=== PATIENT | female | born 1990 | race Two or more races ===

== ENCOUNTER 2025-04-20 12:44 | Observation (INO) | payer OTHER, MEDICAID, SELFPAY ==
[2025-04-20 12:54] VITALS: BP 125/76; PULSE 81
[2025-04-20 12:56] VITALS: BP 125/76; PULSE 81; RESP 18; RESP 98; TEMP 36.9; BMI 26.6
[2025-04-20 13:28] LABS: Collection Type, Urine Clean Catch
[2025-04-20 13:52] LABS: Bacteria,Urine 1+; Bilirubin,Urine Negative (Negative); Blood,Urine Negative (Negative); Clarity,Urine Turbid (Clear/Hazy); Color,Urine Lt-Yellow (Lt Yel-Yel); Glucose, Urine Negative (Negative); Ketones,Urine Negative (Negative); Leukocyte Esterase,Urine Positive (Negative); Nitrite,Urine Negative (Negative); PH,Urine 6.5 (5.0-7.0); Protein,Urine Negative (Neg - Trace); RBC,Urine 9 /hpf (0-3); Specific Gravity,Urine 1.004 (1.001-1.035); Squamous Epithelial Cell,Urine 10 /hpf (0-5); Urobilinogen,Urine Negative mg/dL (0.0-1.0); WBC,Urine 20 /hpf (0-5)
== END 2025-04-20 14:20 | disposition home or self-care (01) ==
PROVIDERS: Admitting Provider Obstetrics & Gynecology; Visit Provider Obstetrics & Gynecology
DX: O26.893 Other specified pregnancy related conditions, third trimester (principal); M54.50 Low back pain, unspecified; R10.30 Lower abdominal pain, unspecified; Z3A.30 30 weeks gestation of pregnancy
CPT/HCPCS: 59025; 59899; 81001

== ENCOUNTER 2025-06-07 21:30 | Observation (INO) | payer OTHER, MEDICAID, SELFPAY ==
[2025-06-07] VITALS (9 sets, daily range): BP systolic 122; BP diastolic 75; PULSE 77–100; RESP 18–98; TEMP 36.5; O2SAT 97–99; BMI 27.8
== END 2025-06-07 22:32 | disposition home or self-care (01) ==
PROVIDERS: Admitting Provider Obstetrics & Gynecology; Visit Provider Obstetrics & Gynecology
DX: O47.03 False labor before 37 completed weeks of gestation, third trimester (principal); Z3A.36 36 weeks gestation of pregnancy
CPT/HCPCS: 59025; 59899

== ENCOUNTER 2025-06-26 10:40 | Outpatient (CLI) | payer OTHER, MEDICAID, SELFPAY ==
[2025-06-26 10:40] VITALS: BP 134/82; PULSE 82; RESP 16; RESP 99; TEMP 36.6; BMI 28.3
[2025-06-26 10:47] VITALS: BP 134/82; PULSE 82
[2025-06-26 11:03] VITALS: BP 123/83; PULSE 93
[2025-06-26 11:17] VITALS: BP 122/75; PULSE 68
== END 2025-06-26 11:30 | disposition home or self-care (01) ==
LOC: S4S1 10:42 → S4SX 10:42
PROVIDERS: Referring Provider Specialist; Visit Provider Specialist
DX: O36.8130 Decreased fetal movements, third trimester, not applicable or unspecified (principal); Z3A.39 39 weeks gestation of pregnancy
CPT/HCPCS: 59025

== ENCOUNTER 2025-06-27 22:10 | Inpatient (IN) | payer OTHER, MEDICAID, SELFPAY ==
[2025-06-27 22:18] VITALS: RESP 16; TEMP 36.8
[2025-06-27 22:32] VITALS: BMI 28.0
[2025-06-27 22:33] VITALS: BP 128/95; PULSE 108
[2025-06-27 22:52] VITALS: PULSE 90; O2SAT 97
[2025-06-27 23:04] LABS: Basophils # (Auto) 0.0 Thou/mm3 (0.0-0.2); Basophils % (Auto) 0 % (0-2.5); Eosinophils # (Auto) 0.1 Thou/mm3 (0.0-0.5); Eosinophils % (Auto) 1 % (0-10); Hematocrit 38.2 % (36.0-46.0); Hemoglobin 12.8 g/dL (12.0-16.0); Immature Granulocytes Auto 0.07 Thou/mm3 (0.00-0.00); Lymphocytes # (Auto) 1.7 Thou/mm3 (1.0-4.8); Lymphocytes % (Auto) 24 % (10-50); Mean Corpuscular HGB Conc 33.5 g/dl (31.0-37.0); Mean Corpuscular Hemoglobin 26.3 pg (25.0-35.0); Mean Corpuscular Volume 78 fL (80-100); Monocytes # (Auto) 0.6 Thou/mm3 (0.0-0.8); Monocytes % (Auto) 8 % (0-12); Neutrophils # (Auto) 4.7 Thou/mm3 (1.8-7.7); Neutrophils % (Auto) 66 % (37-80); Nucleated Red Blood Cell # 0.00 Thou/mm3 (0.00-0.00); Nucleated Red Blood Cell % 0 /100 WBC (0); Platelet Count 250 Thou/mm3 (140-440); RDW Standard Deviation 44.1 fL (36.4-46.3); Red Blood Count 4.87 Miln/mm3 (4.00-5.20); White Blood Count 7.1 Thou/mm3 (3.6-11.0)
[2025-06-27 23:44] VITALS: BP 118/79; PULSE 90
[2025-06-28] VITALS (18 sets, daily range): BP systolic 98–126; BP diastolic 58–85; PULSE 70–120; RESP 16–19; TEMP 36.4–36.7; O2SAT 98–99
--- NOTE | 2025-06-28 | XR_ITS ---
Examination: age Limited Technique: Limited transabdominal sonographic images pelvis Date and time: June 28, 2025, 0001 hrs. Indications: Labor induction today, labor evaluation. Findings: Viable intrauterine gestation cephalic presentation. Cardiac motion 162 BPM. Estimated weight 3214 g Impression: Viable intrauterine gestation cephalic presentation
[2025-06-28 00:11] LABS: Syphilis Nonreactive (Nonreactive)
--- NOTE | 2025-06-28 00:58 | ESHP_ITS ---
Documentation for date of: 06/28/25 OB Labor/Induct. HPI History of Present Illness Chief complaint: Induction for Postdates : 1 Para: 0 Term pregnancies: 0 pregnancies: 0 Living children: 0 History of Abortions: Spontaneous and Elective: 0 History of sections: No History of : No Date of last menstrual period: 09/22/24 ANAI: 06/29/25 Gestational Age (weeks): 40 Gestational Age (days): 1 Gestational age based on last menstrual period: 39 Indication for induction: post dates History of present illness: 34 yo IUP 40w1d presents for IOL for Postdates. Patient of [facility]. GBS negative. Initially MFM US suggested 2 small VSDs but subsequently Echo was negative. complicated by GDMA2 controlled with Metformin. No leaking or bleeding. Occasional contractions. Normal movement. Comments: PHX: Denies PSHx: Denies Meds: MVI, Metformin 500mg po BID Allergies: NKDA Soocial Hx: Denies any drug use, ETOH or SMO. FHx: see record. Labs Labs: Positive: Rubella Titre, Negative: RPR, Hepatitis B, HIV, Chlamydia, Gonorrhea and Group Beta Strep and Unknown: Herpes Type 1, Herpes Type 2 and Covid-19 Review of Systems Review of Systems Narrative Review of Systems: No chest pain, palpitations, shortness of breath or lower extremity pain . No RUQ pain, heachache, or change in vision Past Medical History Surgical History SURGICAL: Negative Section Meds Home Medications and Allergies Home Medications ?Medication ?Instructions ?Recorded ?Confirmed ?Type metformin 500 mg tablet 500 mg PO .q day 06/07/25 History vits no.130-ferrous fum 1 tab PO .q day 06/0706/27/25 History 27 mg iron-folic acid 800 mcg tablet ( Vitamin) Allergies Allergy/AdvReac Type Severity Reaction Status Date / Time No Known Allergies Allergy Verified 06/27/25 22:33 OB Exam Physical Exam Vital signs: Temp Pulse Resp BP Pulse Ox 98.2 F 90 16 118/79 97 06/27/25 22:18 06/27/25 23:44 06/27/25 22:18 06/27/25 23:44 06/27/25 22:52 Routine HEENT Exam Comments: wnl Routine Respiratory Exam Comments: CTA B/L Routine Cardiovascular Exam Comments: RRR Routine Abdominal Exam Comments: Gravid , term size with EFW 8.25 lbs Detailed Labor and Delivery Exam Comments: see RN notes Routine Extremities Exam Comments: Nontender Routine Back/Spine/Pelvis Exam Comments: No CVAT Routine Skin Exam Comments: No rashes or lesions Routine Neurological Exam Comments: No focal deficit OB Results Labs 06/27/25 22:50 Labs: Short CBC 06/27/25 Range/Units 22:50 WBC 7.1 (3.6-11.0) Thou/mm3 Hgb 12.8 (12.0-16.0) g/dL Hct 38.2 (36.0-46.0) % Plt Count 250 (140-440) Thou/mm3 Impressions Impression: Viable IUP 40w1d Post dates Induction GDM A2 on Metformin Anticipate Cervical ripening followed by Pitocin as needed. Monitor BS and maintain < 110 in labor.
--- NOTE | 2025-06-28 01:24 | PRELIM_ITS ---
Obstetric ultrasound (limited). June 28, 2025 0000 hours Clinical history: Labor evaluation. Presentation and EFW. Comparison: No prior study is available for comparison. Findings: There is a gravid uterus with a live fetus in cephalic presentation. cardiac activity is present at a heart rate of 162 beats per minute. Amniotic fluid is subjectively within normal limits. Estimated weight is 3214 grams +/- 476 grams. Impression: Gravid uterus with a single live fetus in cephalic presentation. Estimated weight is 3214 grams+/- 476 grams. Report Electronically Signed By: Kenzie Marshall 06/28/2025 1:23:33 AM [EST]
[2025-06-28] MEDS: RINGERS LACTATED 1000 ML 1,000 ML 125 ML IV ×3 (06:12→16:33)
--- NOTE | 2025-06-28 10:22 | PD.LDPN ---
Documentation for date of: 06/28/25 OB Labor Progress Note Pelvic Exam Dilation (cm): ft Effacement (%): 0 station: -3 Amniotic membrane status: Intact Contractions Monitor mode: External Contraction frequency: 1-4 Contraction pattern: Coupling Contraction intensity: Mild Status status: Category l Assessment and Plan Comments: I assumed care of Gayathri at 0700 this morning. In brief, she is a 34yo with SIUP at 40w1d undergoing IOL for A2GDM well managed with metformin. Initial exam was ft/thick/-3 and cervidil was placed at 0200 early this morning. She notes around 0400 contractions started and she feels them as moderate, not yet desiring any pain medication. Vitals wnl, afebrile Cat I FHRT Ctx q2min Plan to remove cervidil at 1400 and perform SCE. Next steps will be based on SCE. We discussed options include cytotec, cervical schultz balloon, IV pitocin, AROM. Will continue fingerstick glucose checks q4hr. Continue carb consistent diet. I discussed plan of care with patient and her partner, answered all q's. GBS negative Safe to proceed Bernice Espinal MD
[2025-06-28] MEDS: fentaNYL CIT INJ 50 mCg/ML AMP 2ML 100 MCG IVP ×5 (12:01→22:58)
[2025-06-28] MEDS: TERBUTALINE SULF INJ 1 MG/ML VIAL 0.25 MG SC (16:28)
--- NOTE | 2025-06-28 20:01 | ESPR_ITS ---
Documentation for date of: 06/28/25 OB Labor Progress Note Pelvic Exam Dilation (cm): 2 Effacement (%): 60 station: -2 Amniotic membrane status: Intact Contractions Monitor mode: External Contraction frequency: 4-6 Contraction pattern: Coupling Contraction intensity: Mild Status status: Category l Assessment and Plan Comments: Intrapartum Note Patient doing well. Cervidil came out after 1400 and SCE at that time was 1/thick/high. Ctx were occurring every 2-3 minutes, so we waited to see if they would space out naturally, but since they did not, she was given a dose of terbutaline which did cause ctx to space out enough that cytotec 25mcg PV could be placed (at 1800). Discussed with patient option for cervical schultz balloon and she was amenable, desired dose of IV fentanyl just beforehand. SCE now 2/60/-2, cook cervical schultz balloon placed with 40cc only intra- uterine. Taped to leg for traction. Well tolerated. Cat I FHRT Ctx q2min Will await cervical schultz balloon falling out. Will re-dose PV cytotec q4hr if ctx pattern allows Discussed ok to repeat IV fentanyl in 1hr vs epidural if patient desires Will continue to closely monitor Fingerstick glucose q2hr after schultz bulb is out CEFM Safe to proceed Bernice Espinal MD
[2025-06-29] VITALS (231 sets, daily range): BP systolic 103–174; BP diastolic 59–99; PULSE 55–141; RESP 16–18; TEMP 36.3–37.5; O2SAT 73–100
[2025-06-29] MEDS: fentaNYL CIT INJ 50 mCg/ML AMP 2ML 100 MCG IVP (01:01)
[2025-06-29] MEDS: RINGERS LACTATED 1000 ML 1,000 ML 125 ML IV ×2 (01:56→06:49)
--- NOTE | 2025-06-29 01:58 | PD.LDPN ---
Documentation for date of: 06/29/25 OB Labor Progress Note Pelvic Exam Dilation (cm): 4-5 Effacement (%): 75 station: -2 Amniotic membrane status: Ruptured Contractions Monitor mode: External Contraction frequency: 1.5-4.5 Contraction pattern: Tetanic Contraction intensity: Moderate Status status: Category ll Assessment and Plan Comments: Intrapartum Note Called to bedside by RN for FHR decel mar 60's x4 min total, resolving already by the time I was called. RN notes that within the last hour there was SROM, clear. Before decel, FHRT had recently been min tim, but patient had received IV fentanyl. Patient has the shakes- does not feel cold, so it's hormonal and suspect patient is transitioning into labor. She is awaiting epidural now, IVF bolus being given. I tugged on cervical schultz balloon and it easily came out. SCE: 4-5/75/-2, ROM confirmed, clear. FHRT responded well to scalp stim with +accels, mod tim. Patient to receive epidural Expectant management for 2 hours. If no cervical change, will start IV pitocin. Continue to closely monitor CEFM Safe to proceed Bernice Espinal MD
--- NOTE | 2025-06-29 05:41 | PD.LDPN ---
Documentation for date of: 06/29/25 OB Labor Progress Note Pelvic Exam Dilation (cm): 4.5 Effacement (%): 80 station: -2 Amniotic membrane status: Leaking Contractions Monitor mode: Internal Contraction frequency: 3-5 Contraction pattern: Tetanic Contraction intensity: Mild Status status: Category ll Assessment and Plan Comments: Reviewed FHRT with RN. In the last hour there has been min tim and mostly early FHR decels. She notes on the tracing an hour ago it looks like a possible prolonged FHR decel, but really that is where she was checking the patient and 2nd FSE came off, so she starting using external monitor instead of placing another FSE- there was no decel at that time. Prior to an hour ago there was moderate variability, so suspect this is likely a sleep cycle. SCE: /-2 She notes patient is comfortable with the epidural though feeling some vaginal pressure. Because of the min tim, RN has not felt comfortable starting pitocin. I requested another SCE with scalp stim, hopefully with mod tim after that, IV pitocin can be initiated. Bernice Espinal
--- NOTE | 2025-06-29 09:04 | PD.LDPN ---
Documentation for date of: 06/29/25 OB Labor Progress Note Pelvic Exam Dilation (cm): 10 Effacement (%): 100 station: 0 Amniotic membrane status: Leaking Contractions Monitor mode: External Contraction frequency: 3-5 Contraction pattern: Tetanic Contraction intensity: Strong Status status: Category ll Assessment and Plan Comments: Intrapartum Note Patient comfortable with epidural. Cat II FHRT for min-mod tim, early and occasional late FHR decels, +accels Ctx q4-5min Vitals wnl, afebrile SCE: C/C/0. Pushed with patient for several pushes, but she is not feeling any vaginal pressure at all now and she pushes more in her face than her vagina, tried to gymnastics coach but at this point would benefit from turning epidural down (not off) so that she gains some sensation and can push more effectively. I discussed this with her and she is amenable. SENIOR BUSINESS CONSULTANT currently administering another epidural, so will have him halve the rate when he is available and then after 20-30 minutes, will begin pushing again in earnest. Bernice Espinal MD
[2025-06-29] MEDS: MINERAL OIL 30 ML UDC TOP (13:35)
[2025-06-29] MEDS: LIDOCAINE HCL 1% 20 ML VIAL INFL (14:23)
[2025-06-29] MEDS: OXYTOCIN in NS 20 units 20 UNIT/1,000 ML BAG 125 UNIT IV (14:37)
[2025-06-29] MEDS: METHYLERGONOVINE INJ 0.2 MG/ML VIAL IM (14:40)
[2025-06-29] MEDS: BENZO/LANO/ALOE (Dermoplast) 60 GM CAN 1 SPRAY TOP (14:52)
--- NOTE | 2025-06-29 16:31 | OBDSUM_ITS ---
Data ([place]) Data Hx Section: No : 2 Term: 0 : 0 Livin Abortions: Spontaneous & Theraputic: 0 Delivery Data ([place]) Labor Data Initiation of labor: Induction Induction/Augmentation Agent: Cervidil and Cervical Balloon ROM date: 06/29/25 ROM time: 00:57 Amniotic membrane rupture type: Spontaneous Amniotic fluid description: Clear Delivery Data Onset of labor date: 06/29/25 Onset of labor time: 00:57 Complete dilation date: 06/29/25 Complete dilation time: 08:30 [place] delivery date: 06/29/25 delivery time: 14:37 Placenta delivery date: 06/29/25 Placenta delivery time: 14:41 Stage 1 total time: Labor - Stage 1 Duration 7 hours and 33 minutes Delivered by: Bernice Espinal Delivery nurse: An Mascorro nurse: Sharmin Loza HEALTH CARE COORDINATOR Foundation Assistant at delivery: Yes (Dr. Lewis) Support person(s) at delivery: fob, grandmother of Other staff at delivery: Marga CONNELLY, Rozina Wilson RN, Deidre Lizarraga data transcriber Method Delivery method: Normal Vaginal Delivery Presentation: Vertex Anesthesia Type Anesthesia Type: Epidural Placenta Placenta delivery description: Spontaneous Cord blood sent to lab: Yes cord blood collection: Cord Blood Type Episiotomy Episiotomy description: Midline EBL Estimated blood loss (ml): 300 Umbilical Cord cord description: 3 Vessels Additional Procedures Gayathri is a 34yo [id number] s/p uncomplicated VAVD at 40&2wk after undergoing IOL for A2GDM (metformin), delivering at 1437 on 06/29/2025. On presentation, SCE was ft/thick/high. She progressed with cervidil, PV cytotec, cervical schultz balloon and had SROM. She received an epidural. She progressed to C/C/0 at which point she began pushing. I offered patient section an hour into pushing, because patient stated she was too tired to continue (and was not making good progress secondary to inadequate pushing efforts). However, after counseling on all the r/b/a to delivery vs vaginal delivery in detail, she declined section and elected to continue pushing. At C/C/+2 the heart rate began to decelerate to the 80's and patient's pushing efforts were not strong enough to allow for immediate delivery, so VAVD was determined necessary to facilitate quicker delivery to ensure well- being. I discussed my recommendation with the patient and she agreed, director critical care was called for. She had schultz removed. The baby's head was confirmed to be in ROP presentation at +2 station. The Mityvac was placed, maternal tissue excluded, and the correct placement in front of the posterior fontanelle was confirmed digitally. With the patient's next contraction, the vacuum was inflated to the green zone for appropriate pressure and a gentle downward pressure was used. However, with the 1st set of pushes, a pop-off occurred. The vacuum was then re-placed, maternal tissue excluded, and appropriate placement confirmed. With the next contraction, vacuum was inflated to the green zone and gentle downward pressure was used, but again a pop-off occurred during the next set of pushes. I anesthetized the perineum with 1% lidocaine and performed a midline episiotomy to gain more room for delivery. I then re-placed the Mityvac, ensured maternal tissue was excluded, and confirmed appropriate placement. With the next contraction, vacuum was inflated to the green zone and gentle downward pressure was used, but again a 3rd (and final) pop-off occurred during the next set of pushes. I had the patient continue pushing since heart rate was in normal range, and I performed Ritgen's maneuver which finally resulted in successful atraumatic delivery of the infant's head in ROP presentation. The baby's anterior shoulder delivered immediately and easily, followed by posterior shoulder and corpus. Infant had spontaneous cry and was vigorous, moving all extremities. Apgars 7/9. placed on maternal abdomen where nose/mouth were suctioned and infant dried/stimulated. Cord was immediately clamped x2 and cut by me. handed off to the warmer to be assessed by pediatric team. Cord blood collected for typing. With fundal massage and cord traction, placenta delivered spontaneously and intact with 3 vessel centrally inserted cord. Bimanual massage performed and IV pitocin given per protocol with fundus then firm at u-2cm and hemostasis noted. 0.2mg IM methergine also given. Inspection of perineum and vagina revealed small right vaginal sidewall laceration and the midline episiotomy which not extend past a 2nd degree laceration. These were repaired with 3-0 vicryl in routine fashion with total reappoximation and hemostasis noted (after anesthetizing with more 1% lidocaine). Vulvar swelling present secondary to extensive pushing time. All counts correct x2. Mom and infant were doing well when I left the room. Bernice Espinal MD Complications Complications: none [place] Data ([place]) Data 's gender: Male weight (gms): 3520 g Weight (pounds): 7 lbs and 12.2 ozs [place] length: 54.61 cm 1 minute: 7 5 minutes: 9
[2025-06-29] MEDS: IBUPROFEN TAB 400 MG TABLET 800 MG PO ×2 (17:14→21:54)
[2025-06-29] MEDS: DOCUSATE SOD 100 MG CAPSULE PO (20:53)
[2025-06-30 04:00] VITALS: BP 99/63; RESP 18; TEMP 36.6; O2SAT 96
[2025-06-30 06:17] LABS: Basophils # (Auto) 0.1 Thou/mm3 (0.0-0.2); Basophils % (Auto) 0 % (0-2.5); Eosinophils # (Auto) 0.0 Thou/mm3 (0.0-0.5); Eosinophils % (Auto) 0 % (0-10); Hematocrit 34.8 % (36.0-46.0); Hemoglobin 11.3 g/dL (12.0-16.0); Immature Granulocytes Auto 0.13 Thou/mm3 (0.00-0.00); Lymphocytes # (Auto) 1.5 Thou/mm3 (1.0-4.8); Lymphocytes % (Auto) 9 % (10-50); Mean Corpuscular HGB Conc 32.5 g/dl (31.0-37.0); Mean Corpuscular Hemoglobin 26.4 pg (25.0-35.0); Mean Corpuscular Volume 81 fL (80-100); Monocytes # (Auto) 0.9 Thou/mm3 (0.0-0.8); Monocytes % (Auto) 6 % (0-12); Neutrophils # (Auto) 13.4 Thou/mm3 (1.8-7.7); Neutrophils % (Auto) 84 % (37-80); Nucleated Red Blood Cell # 0.00 Thou/mm3 (0.00-0.00); Nucleated Red Blood Cell % 0 /100 WBC (0); Platelet Count 180 Thou/mm3 (140-440); RDW Standard Deviation 47.9 fL (36.4-46.3); Red Blood Count 4.28 Miln/mm3 (4.00-5.20); White Blood Count 16.0 Thou/mm3 (3.6-11.0)
[2025-06-30 08:40] VITALS: BP 105/65; BP 97/59; PULSE 94; RESP 16; TEMP 36.7
[2025-06-30] MEDS: PRENATAL VITAMIN/FE FUM/FA TABLET 1 TAB PO (08:59)
[2025-06-30] MEDS: DOCUSATE SOD 100 MG CAPSULE PO (08:59)
--- NOTE | 2025-06-30 10:48 | PD.LDDS ---
DS: Providers Provider Date of admission: 06/27/25 22:10 Primary care physician: Physician No Primary/Family Admitting Provider: Antonio Berry MD Attending Provider on Admission: Ollie Lopez MD Consults: 06/29/25 15:33 Referral Routine Comment: Attending Provider on DC: Bernice Espinal MD Discharging Provider: Bernice Espinal MD DS: Diagnosis Discharge Diagnosis (1) care and examination: Status: Acute (2) Vacuum-assisted vaginal delivery: Status: Acute (3) White classification A2 gestational diabetes mellitus (GDM): Status: Acute Problem List Completed Was Problem List Reviewed/Reconciled?: Yes Summary/Hosp Course Brief History: 34 yo IUP 40w1d presents for IOL for Postdates. Patient of [facility]. GBS negative. Initially MFM US suggested 2 small VSDs but subsequently Echo was negative. complicated by GDMA2 controlled with Metformin. No leaking or bleeding. Occasional contractions. Normal movement. --- Gayathri is a 34yo [id number] s/p uncomplicated VAVD at 40&2wk after undergoing IOL for A2GDM (metformin), delivering at 1437 on 06/29/2025. She has had an uncomplicated course, meeting all milestones and feels ready for discharge home. She is ambulating without lightheadedness, tolerating regular diet no n/v, spontaneously voiding without issue. She has no chest pain or shortness of breath. No fevers or chills. Minimal, appropriate discomfort. Vitals normal, benign exam. Hemodynamically stable with no evidence of infection. PP Hgb 11.3. Peripartum Data Delivery Method: Normal Vaginal Delivery Episiotomy Description: Midline Status at Discharge Functional status at discharge: independent ambulation Overall status at discharge: patient is back to baseline Time Spent with Patient Time attestation: Total time spent providing and/or coordinating discharge services: Exam Vital Signs Temp Pulse Resp BP Pulse Ox O2 Del Method 98.1 F 94 16 97/59 L 96 Room Air 06/30/25 08:40 06/30/25 08:40 06/30/25 08:40 06/30/25 08:40 06/30/25 04:00 06/30/25 08:40 Narrative Exam General: well developed, well nourished, no acute distress, conversant Cardiac: normal heart rate Lungs: breathing without distress Abdomen: soft, post-gravid, non-tender, no rebound or guarding, Fundus firm at u-3cm. Extremities: no pain with palpation of calves, trace edema of BLE Discharge Plan Plan Patient Disposition: HOME (Self Care) Patient condition on transfer: Stable Prescriptions/Referrals Prescriptions/Med Rec: New docusate sodium 100 mg Capsule 100 mg PO BID 10 Days Qty: 20 0RF ibuprofen 800 mg tablet 800 mg PO Q8H PRN (Reason: See Comments) 10 Days Qty: 20 0RF Continued Vitamin 27 mg iron- 800 mcg tablet 1 tab PO .q day Discontinued metformin 500 mg tablet 500 mg PO .q day Patient Comments: TAKE ONE TABLET BY MOUTH EVERY DAY WITH FOOD FOR DIABETES Referrals: No Primary/Family,Physician [Primary Care Provider] - Patient/Caregiver Discharge Instructions Discharge Activity: activity as tolerated and other Other Discharge Activity Instructions:: vaginal rest and no heavy lifting more than 10 pounds for 6 weeks Other Discharge Diet Instructions: regular diet Education Materials: After a Vaginal Print Language: Maori Activity Restrictions/Additional Instructions: follow up with Steffany in 2 weeks for visit, call for appointment Stand Alone Forms: Maryann Award Info., Patient Portal Info Letter Discharge Order Discharge Orders: Discharge (Routine); Ordered 06/30/25 Ordered By: Bernice Espinal Planned Discharge Date 06/30/25
[2025-06-30 12:11] VITALS: BP 106/61; PULSE 100; RESP 18; TEMP 36.9
[2025-06-30] MEDS: IBUPROFEN TAB 400 MG TABLET 800 MG PO (15:00)
== END 2025-06-30 19:25 | disposition home or self-care (01) | DRG 807 ==
LOC: S4SX 06-29 16:52 → S4NX 06-29 17:49
PROVIDERS: Obstetrics & Gynecology; Admitting Provider Specialist; Visit Provider Obstetrics & Gynecology
DX: O48.0 Post-term pregnancy (principal); Z37.0 Single live birth; Z3A.40 40 weeks gestation of pregnancy; O76 Abnormality in fetal heart rate and rhythm complicating labor and delivery; O24.425 Gestational diabetes mellitus in childbirth, controlled by oral hypoglycemic drugs; O70.1 Second degree perineal laceration during delivery; O32.8XX0 Maternal care for other malpresentation of fetus, not applicable or unspecified
CPT/HCPCS: 36415; 76815; 85025; 86780; 86850; 86900; 86901; J2210; J2590; J2795; J3010; J3105; J3490; J7120; A9270

== ENCOUNTER 2025-07-03 19:09 | Inpatient (IN) | payer OTHER, MEDICAID, SELFPAY ==
[2025-07-03 20:01] VITALS: BP 142/86; PULSE 64; RESP 18; TEMP 36.9; O2SAT 98
--- NOTE | 2025-07-03 20:19 | EDNOTE_ITS ---
ED Skin Abcess FB-RME/HPI General Chief complaint: Skin/Abscess/Foreign Body Stated complaint: INCISION AREA PAIN Time Seen by Provider: 07/03/25 19:13 Arrival date/time: 07/03/25 19:09 This is a case of 34-year-old female with no medical history came in in the emergency room due to vaginal pain history of present illness started June 29, 2025 when the patient underwent vaginal delivery with episiotomy and have complication with perineal tear patient was discharged and went home until today patient noted that there is bleeding coming from episiotomy and severe pain no abdominal pain no vaginal bleeding Limitations: no limitations Related Data Home Medications ?Medication ?Instructions ?Recorded ?Confirmed vits no.130-ferrous fum 1 tab PO .q day 06/0706/27/25 27 mg iron-folic acid 800 mcg tablet ( Vitamin) Previous Rx's ?Medication ?Instructions ?Recorded docusate sodium 100 mg capsule 100 mg PO BID 10 days # 20 caps 06/29/25 ibuprofen 800 mg tablet 800 mg PO Q8H PRN See Davian holguin 10 06/29/25 days #20 tabs Allergies Allergy/AdvReac Type Severity Reaction Status Date / Time No Known Allergies Allergy Verified 07/03/25 19:13 Review of Systems Review of Systems Systems Reviewed: All systems reviewed, normal except as documented Constitutional Constitutional: Reports system reviewed and no additional complaints, except as documented and Reports as per HPI Cardiovascular Cardiovascular: Reports system reviewed and no additional complaints, except as documented and Reports as per HPI Respiratory Respiratory: Reports system reviewed and no additional complaints, except as documented and Reports as per HPI Gastrointestinal Gastrointestinal: Reports system reviewed and no additional complaints, except as documented and Reports as per HPI Neurologic Neurologic: Reports system reviewed and no additional complaints, except as documented and Reports as per HPI Past Medical History Past Medical History NEUROLOGIC: Negative Neurological Disorders or Seizures CARDIAC: Negative Cardiac Disorders, Congestive Heart Failure, Edema, Cellulitis or Varicose Veins RESPIRATORY: Negative Chronic Obstructive Pulmonary Disease (COPD) GASTROINTESTINAL: Negative Gastrointestinal Disorders, Hepatitis or Gall Bladder Disease GENITOURINARY: Negative Genitourinary Disorders or Renal Disease REPRODUCTIVE: Negative Endometriosis, Genital Herpes, Gonorrhea, Pelvic Inflammatory Disease, Previous Pregnancies, Syphilis or Uterine Prolapse MUSCULOSKELETAL: Negative Musculoskeletal Disorders ENDOCRINE: Negative Endocrine Disorders, Diabetes Mellitus Type 1 or Diabetes Mellitus Type 2 HEMATOLOGIC: Negative Blood Disorders, Anemia, Leukemia, Hemophilia, Thalassemia, Sickle Cell Disease or Clotting Problems OTHER HISTORY: Negative Hospitalization, Autoimmune Disease, Shingles, Falls, Blood Transfusions, Anesthesia Reactions, Chemotherapy, Radiation Therapy, MRSA, Chicken Pox, Measles, Mumps or Cancer Family History FAMILY HISTORY: Positive Family Cardiac Disorders (father (htn,cholesterol),mother (htn)); Negative Family Psychiatric Problems, Family Respiratory Disorders, Family Gastrointestinal Problems, Family Cancer, Family Surgery or Family Anesthesia Reaction Surgical History SURGICAL: Negative Pacemaker or Section Social History SMOKING STATUS: 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 SECOND HAND EXPOSURE: No ED Exam General Limitations: Present no limitations General appearance: Present alert, in no apparent distress and other (Patient is awake alert oriented not in distress nontoxic looking well-hydrated well- nourished) Head Head exam: Present atraumatic, normocephalic and normal inspection Eye Eye exam: Present normal appearance, PERRL and EOMI ENT ENT exam: Present normal exam, normal oropharynx and mucous membranes moist Neck Neck exam: Present normal inspection, full ROM and trachea midline; Absent tenderness, meningismus, lymphadenopathy or thyromegaly Chest Chest inspection: Present normal inspection and symmetric chest wall rise; Absent tenderness Respiratory Respiratory exam: Present normal lung sounds bilaterally; Absent respiratory distress, wheezes, stridor, accessory muscle use or prolonged expiratory phase Cardiovascular Cardiovascular exam: Present regular rate, normal rhythm and normal heart sounds; Absent bradycardia, tachycardia, irregular rhythm or systolic murmur Abdominal Exam Abdominal exam: Present soft and normal bowel sounds; Absent distention, tenderness, guarding, rebound, rigidity, diminished bowel sounds, hyperactive bowel sounds, hypoactive bowel sounds, psoas sign, obturator sign, Beach's sign, Rovsing's sign or tenderness at [place] Point Rectal Exam Rectal exam: Present other (Normal exam) External exam: Present other (Patient noted to have small hematoma on the left labia with minimal bleeding tender to touch mild swelling no lesion) Speculum exam: Present other (Unable patient cannot tolerate it) Bimanual exam: Present other (Unable) Extremities Exam Extremities exam: Present normal inspection and full ROM Back Exam Back exam: Present normal inspection and full ROM Neurological Exam Neurological exam: Present alert, oriented X3, CN II-XII intact, normal gait and reflexes normal; Absent motor sensory deficit Psychiatric Psychiatric exam: Present normal affect and normal mood Skin Skin exam: Present warm, dry, intact and normal color Course Quality Measures none Vital Signs Vital signs: Vital Signs Temperature 98.4 F 07/03/25 20:01 Pulse Rate 64 07/03/25 20:01 Respiratory Rate 18 07/03/25 20:01 Blood Pressure 142/86 H 07/03/25 20:01 Pulse Oximetry (%) 98 07/03/25 20:01 Oxygen Delivery Method Room Air 07/03/25 20:01 Oxygen saturation is 98% in room air Skin / Abscess / Foreign Body MDM Narrative MDM Narrative:: This is a case of 34-year-old female with no medical history came in in the emergency room due to vaginal pain history of present illness started June 29, 2025 when the patient underwent vaginal delivery with episiotomy and have complication with perineal tear patient was discharged and went home until today patient noted that there is bleeding coming from episiotomy and severe pain no abdominal pain no vaginal bleeding physical exam examination patient is awake alert oriented not in distress nontoxic looking patient is afebrile nontachycardic nontachypneic nonhypoxic abdominal exam is benign nonsurgical no guarding no rebound no rigidity no tenderness noted left labia with hematoma and minimal bleeding from the episiotomy unable to complete the exam patient is uncomfortable I spoke to Dr. Lopez OB on-call discussed patient condition history and physical examination and finding patient have a complicated vaginal bleeding which they required vacuum and repair of the perineum Dr Villarreal wanted to admit the patient for antibiotics and possible repair of the laceration on Saturday I discussed with the patient that treatment plan and admission and Patient data External records reviewed:: [facility] previous records Clinical information provided by:: patient Social determinants that could affect healthcare access:: none Patient has the following chronic illnesses:: None How is presenting disease/condition affected by chronic disease/condition?: no chronic disease Evaluation data The following diagnostics were reviewed and interpreted by me:: other (specify) (None) Lab and/or radiology exams considered but not ordered:: None Interpretation Summary: None Medications / Prescriptions Medications or Prescriptions considered but not ordered:: Given Medication administrations:: Given Consultations Consultation(s) initiated? (list below): Yes Consultation #1 (Physician, Specialty, Details): Dr. Lopez discussed patient condition history and physical examination patient will be admitted for possible repair of the laceration and antibiotic treatment Diagnosis Skin/Abscess Differential Diagnosis: other (Perineal tear status post vaginal delivery) Most likely diagnosis given after review of the tests above:: Perineal tear status post vaginal delivery Admission Indicated Admission indicated?: indicated Explain why admission is indicated or not indicated:: Perineal tear for repair on Saturday Admission Request Was there a request for admission?: Yes Admission Attestation Admission request attestation: Discussed case with [] from Hospitalist service regarding admission. Discussed patients ED course, exam findings, labs, and radiology results. The Hospitalist [agrees,declines] to accept the patient for admission. Disposition Plan Disposition Plan: Admit Discharge Plan Plan Patient Disposition: HOME (Self Care) Patient condition on transfer: Stable Prescriptions/Referrals Prescriptions/Med Rec: No Action docusate sodium 100 mg Capsule 100 mg PO BID 10 Days Qty: 20 0RF ibuprofen 800 mg tablet 800 mg PO Q8H PRN (Reason: See Comments) 10 Days Qty: 20 0RF Vitamin 27 mg iron- 800 mcg tablet 1 tab PO .q day Referrals: Geo Panchal MD [Primary Care Provider, Family Practice] - In 1 week Problem List Clinical Impression: Status post vaginal delivery, Vaginal pain, Secondary perineal tear in the puerperium Patient/Caregiver Discharge Instructions Education Materials: After a Vaginal Print Language: Malay Stand Alone Forms: Maryann Award Info., Patient Portal Info Letter PA/DEVANTE Supervising Physician JOSSELINE/DEVANTE Supervising Physician: dr posey
--- NOTE | 2025-07-03 20:25 | XR_ITS ---
Examination: CT abdomen with intravenous contrast CT pelvis with intravenous contrast 2-D coronal reconstructions 2-D sagittal reconstructions Date and time of exam:July 03, 2025, 11:15 PM Indications: Vaginal incision pain, pain today. CTDI: vol (mGy) 7.68 DLP: (mGycm) 166 Technique: Multiple axial sections of the abdomen and pelvis have been obtained. 64 slice high-resolution scanner used. 3 mm axial sections have been obtained, post intravenous injection 60 cc [id number] 2-D sagittal, coronal reconstructions obtained. Low dose protocols were performed. One or more of the following dose reduction techniques were used; automated exposure control, adjustment of the mA and/or KV according to patient size, use of iterative reconstruction technique. Findings: No focal liver or splenic lesion No gallstones No pancreatic mass or edema No renal or ureteral calculi, no hydronephrosis Aorta normal size Normal appendix uterus with irregular areas of contrast enhancement in the fundus of uterus Endometrial stripe on this study measures 29 mm No pelvic hematoma Urinary bladder intact Perineal hematoma 7.3 x 8.9 x 9.3 cm Impression: uterus with irregular areas of contrast-enhancement in the fundus of uterus Endometrial stripe in the lower uterus measures 29 mm, clinical correlation advised Perineal hematoma 7.3 x 8.9 x 9.3 cm
--- NOTE | 2025-07-03 20:25 | XR_ITS ---
Examination: Transabdominal pelvic sonogram Technique: Grayscale sonographic images pelvis transabdominal Date and time: July 03, 2025, 2052 hrs. Indications: June 29, 2025, worsening pelvic pain today Findings: Uterus 19.0 cm endometrial stripe 0.6 cm No retained products of conception. Right ovary 3.6 cm arterial flow. Left ovary 3.2 cm arterial flow Impression: enlarged uterus. Negative for retained products of conception
[2025-07-03] MEDS: SODIUM CHLORIDE 0.9% 250 ML 250 ML 999 ML IV (21:30)
[2025-07-03] MEDS: SODIUM CHLORIDE 0.9% 1000 ML 1,000 ML 75 ML IV (21:31)
--- NOTE | 2025-07-03 21:32 | PD.GYNHP ---
Documentation for date of: 07/03/25 [employer] - HPI History of Present Illness History of present illness: Gayathri is a patient who recently underwent a vacuum-assisted delivery on June 29, 2025, after extensive pushing for over 6 hours. Her was complicated by diet-controlled gestational diabetes. She presents today with concerns about her perineal stitches. The patient reports that she started noticing separation of her perineal stitches yesterday. She describes experiencing so much pain in the affected area. Initially, she thought it was normal and that the area was getting dry like something, which led to a delay in seeking medical attention. Her mother observed the area and advised that it doesn't look good. The patient denies soaking through pads but mentions there is some discharge, which could indicate signs of localized infection. She denies any systemic signs, including fevers, chills, or any other signs of systemic sepsis. Gayathri is currently her . She expresses concern about being from her baby during her hospital stay and inquires about the possibility of having her baby visit her in the hospital. Medical History: - Gestational diabetes, diet-controlled Surgical History: - Vacuum-assisted delivery on June 29, 2025 - Unspecified surgery performed by Dr. Lopez Obstetric History: - GPAL: A0 L1 - Current status: - Delivered via vacuum-assisted delivery on June 29, 2025 - was complicated by diet-controlled gestational diabetes - Extensive pushing for over 6 hours prior to delivery Medications: - Zosyn IV antibiotics every 8 hours Social History: - Has a baby - Meds Home Medications and Allergies Home Medications ?Medication ?Instructions ?Recorded ?Confirmed ?Type vits no.130-ferrous fum 1 tab PO .q day 06/07/25 06/27/25 History 27 mg iron-folic acid 800 mcg tablet ( Vitamin) Allergies Allergy/AdvReac Type Severity Reaction Status Date / Time No Known Allergies Allergy Verified 07/03/25 19:13 Exam - [employer] Vital Signs Temp Pulse Resp BP Pulse Ox O2 Del Method 98.4 F 64 18 142/86 H 98 Room Air 07/03/25 20:01 07/03/25 20:01 07/03/25 20:01 07/03/25 20:01 07/03/25 20:01 07/03/25 20:01 Constitutional Constitutional: no acute distress Routine HEENT Exam Head: Present normocephalic and atraumatic Eye: Present EOMI and PERRL ENT: Present mucous membranes moist Routine Neck Exam Neck: Present supple and trachea midline Routine Respiratory Exam Respiratory: Present chest non-tender, lungs clear, normal breath sounds and no resp distress Routine Cardiovascular Exam Cardiovascular: Present RRR Routine Abdominal Exam Abdominal: Present soft and normoactive bowel sounds Routine Extremities Exam Extremities: Present full ROM Routine Skin Exam Skin: Present intact and dry Routine Neurological Exam Neurological: Present alert, oriented X3 and CN II-XII intact Routine Psychiatric Exam Psychiatric: Present normal affect and normal thought process Assessment and Plan Assessment and plan (1) Secondary perineal tear in the puerperium: Status: Acute Assessment and plan: perineal wound dehiscence with suspected localized infection Assessment: Patient underwent vacuum-assisted delivery on June 29, 2025, after extensive pushing for over 6 hours. The was complicated by diet-controlled gestational diabetes. Yesterday, the patient noticed separation of her perineal stitches with discharge, indicating possible localized infection. She denies systemic signs such as fevers or chills, suggesting the infection is likely contained to the perineal area. The proximity to the rectum increases the risk of infection in this region. Plan: - Admit to inpatient status - NPO after midnight for exam under anesthesia and surgical repair in the morning - IV antibiotics: Zosyn every 8 hours - Pain management as per protocol - Initiate diet regimen and stool softeners - consult for pumping and storing breast milk - Surgical repair under anesthesia in the morning - Anticipate discharge after lunch tomorrow (less than 24 hours stay) (2) Vaginal pain: Status: Acute Quality Measures Quality Measures none
[2025-07-03] MEDS: PIPER/TAZO 3.375 GM PREMIX 3.375 GM/50 ML BAG IV (21:42)
[2025-07-03 22:09] VITALS: BP 150/91; PULSE 65; RESP 19; TEMP 36.6; O2SAT 97
[2025-07-03 22:20] LABS: Basophils # (Auto) 0.0 Thou/mm3 (0.0-0.2); Basophils % (Auto) 1 % (0-2.5); Eosinophils # (Auto) 0.2 Thou/mm3 (0.0-0.5); Eosinophils % (Auto) 2 % (0-10); Hematocrit 33.7 % (36.0-46.0); Hemoglobin 11.1 g/dL (12.0-16.0); Immature Granulocytes Auto 0.43 Thou/mm3 (0.00-0.00); Lymphocytes # (Auto) 1.7 Thou/mm3 (1.0-4.8); Lymphocytes % (Auto) 20 % (10-50); Mean Corpuscular HGB Conc 32.9 g/dl (31.0-37.0); Mean Corpuscular Hemoglobin 26.3 pg (25.0-35.0); Mean Corpuscular Volume 80 fL (80-100); Monocytes # (Auto) 0.7 Thou/mm3 (0.0-0.8); Monocytes % (Auto) 8 % (0-12); Neutrophils # (Auto) 5.5 Thou/mm3 (1.8-7.7); Neutrophils % (Auto) 65 % (37-80); Nucleated Red Blood Cell # 0.00 Thou/mm3 (0.00-0.00); Nucleated Red Blood Cell % 0 /100 WBC (0); Platelet Count 247 Thou/mm3 (140-440); RDW Standard Deviation 44.7 fL (36.4-46.3); Red Blood Count 4.22 Miln/mm3 (4.00-5.20); White Blood Count 8.5 Thou/mm3 (3.6-11.0)
[2025-07-03 22:44] LABS: Alanine Aminotransferase 23 U/L (10-49); Albumin, Serum 3.9 gm/dL (3.5-5.0); Albumin/Globulin Ratio 1.6 (1.2-2.2); Alkaline Phosphatase 155 U/L (46-116); Anion Gap 12 (7-16); Aspartate Amino Transferase 22 U/L (0-34); BUN/Creatinine Ratio 13 Ratio (12-20); Bilirubin,Total 0.3 mg/dL (0.3-1.2); Blood Urea Nitrogen 8 mg/dL (9-23); Calcium 9.3 mg/dL (8.3-10.6); Calcium (Corrected) 9.4 mg/dL (8.5-10.1); Carbon Dioxide 21.8 mMol/L (20.0-31.0); Chloride 109 mMol/L (98-107); Creatinine (Component) 0.6 mg/dL (0.6-1.3); Estimated Creatinine Clearance 144.1 mL/min (>60); Globulin 2.5 gm/dL (2.3-3.5); Glucose 92 mg/dL (74-106); Osmolality,Calculated 283 (275-295); Potassium 3.7 mMol/L (3.4-5.1); Sodium 143 mMol/L (136-145); Total Protein 6.4 gm/dL (5.7-8.2); eGFR > 60 See Note
[2025-07-03 23:13] VITALS: BMI 27.4
[2025-07-04] VITALS (13 sets, daily range): BP systolic 128–156; BP diastolic 70–97; PULSE 54–103; RESP 16–96; TEMP 36.1–37.3; O2SAT 96–99
[2025-07-04] MEDS: HYDROcodone/APAP 5/325 TABLET 1 TAB PO ×3 (00:14→20:09)
[2025-07-04 06:06] LABS: Basophils # (Auto) 0.1 Thou/mm3 (0.0-0.2); Basophils % (Auto) 1 % (0-2.5); Eosinophils # (Auto) 0.2 Thou/mm3 (0.0-0.5); Eosinophils % (Auto) 3 % (0-10); Hematocrit 33.0 % (36.0-46.0); Hemoglobin 10.6 g/dL (12.0-16.0); Immature Granulocytes Auto 0.32 Thou/mm3 (0.00-0.00); Lymphocytes # (Auto) 1.8 Thou/mm3 (1.0-4.8); Lymphocytes % (Auto) 23 % (10-50); Mean Corpuscular HGB Conc 32.1 g/dl (31.0-37.0); Mean Corpuscular Hemoglobin 25.7 pg (25.0-35.0); Mean Corpuscular Volume 80 fL (80-100); Monocytes # (Auto) 0.6 Thou/mm3 (0.0-0.8); Monocytes % (Auto) 8 % (0-12); Neutrophils # (Auto) 4.7 Thou/mm3 (1.8-7.7); Neutrophils % (Auto) 61 % (37-80); Nucleated Red Blood Cell # 0.00 Thou/mm3 (0.00-0.00); Nucleated Red Blood Cell % 0 /100 WBC (0); Platelet Count 230 Thou/mm3 (140-440); RDW Standard Deviation 45.4 fL (36.4-46.3); Red Blood Count 4.12 Miln/mm3 (4.00-5.20); White Blood Count 7.7 Thou/mm3 (3.6-11.0)
[2025-07-04] MEDS: PIPER/TAZO 3.375 GM PREMIX 3.375 GM/50 ML BAG IV ×3 (06:23→21:07)
[2025-07-04 06:32] LABS: Alanine Aminotransferase 24 U/L (10-49); Albumin, Serum 3.5 gm/dL (3.5-5.0); Albumin/Globulin Ratio 1.6 (1.2-2.2); Alkaline Phosphatase 137 U/L (46-116); Anion Gap 12 (7-16); Aspartate Amino Transferase 17 U/L (0-34); BUN/Creatinine Ratio 16 Ratio (12-20); Bilirubin,Total 0.3 mg/dL (0.3-1.2); Blood Urea Nitrogen 8 mg/dL (9-23); Calcium 9.0 mg/dL (8.3-10.6); Calcium (Corrected) 9.4 mg/dL (8.5-10.1); Carbon Dioxide 22.6 mMol/L (20.0-31.0); Chloride 110 mMol/L (98-107); Creatinine (Component) 0.5 mg/dL (0.6-1.3); Estimated Creatinine Clearance 175.3 mL/min (>60); Globulin 2.2 gm/dL (2.3-3.5); Glucose 90 mg/dL (74-106); Osmolality,Calculated 287 (275-295); Potassium 3.7 mMol/L (3.4-5.1); Sodium 145 mMol/L (136-145); Total Protein 5.7 gm/dL (5.7-8.2); eGFR > 60 See Note
--- NOTE | 2025-07-04 16:25 | PC.SS ---
Patient is a 34 year old female presenting to the hospital for episotomy scar breakdown. [employer] met with patient, at bedside was her Tai, role and reason explained for visit. Patient gave consent for to be present. Patient confirmed demographic information and stated she lives with her . Patient stated that if she is not able to make medical decisions on her own she would like her to make them. Patient is unemployed, does not use medical equipment, her PCP is Dr. Avilez at [facility] last appointment was three months ago. Pharmacy of choice is [facility]. Patient stated that once medically clear she would like to return home and her will provide transportation. PCP: Dr. Tapia [facility] Decision maker: Tai Arango d/c: home
--- NOTE | 2025-07-04 17:51 | PC.NURSE ---
Patient was taken to the OR at this time for procedure.
--- NOTE | 2025-07-04 18:38 | ESOP_ITS ---
Operative Note - BIOMEDICAL TECHNICIAN Procedure Date of procedure: 07/04/25 Procedure Performed: Exam under anesthesia and revision of episiotomy repair Indication: 34-year-old G1, P1 who presented to the ER 3 days status post vacuum-assisted vaginal delivery with foul-smelling vaginal discharge Pre-Op diagnosis: Breakdown of episiotomy repair Perineal hematoma Post-Op diagnosis: Same Anesthesia type: General Procedure description: Informed consent was obtained and the patient was taken to the operating room. Identity was confirmed by double identifiers and she was placed on the operating table. Patient was sedated and she was now positioned in the dorsal lithotomy position. The abdomen and perineum were prepped in the usual sterile fashion and sterile drapes were applied. A timeout procedure was completed. The bladder was drained using a straight catheter Initially detailed inspection was performed. The episiotomy repair was noted to have broken down with breakage of stitch material at multiple sites. A speculum exam was also performed and the cervix was thoroughly visualized and noted to be intact and hemostatic. No additional lacerations were identified. The perineal laceration was now thoroughly inspected. All the sections of suture material were removed. Upon detailed inspection patient was noted to have 2 separate lacerations. 1 in the right vaginal sulcus and the midline episiotomy itself. 0 Vicryl was used to apply figure of 8 stitches to first approximate the sulcus laceration. Now the perineal laceration was repaired using 0 Vicryl in the usual fashion, starting from the apex and the vaginal mucosa and running down towards the anal margin in a running locked fashion. The skin was approximated in a subcuticular fashion. Additional subcuticular stitches were placed to reapproximate skin edges. After the repair was completed the wound was noted to be intact. The wound was thoroughly irrigated. Hemostasis was noted to be satisfactory. All instruments were now withdrawn. Patient was taken out of lithotomy position, undraped, sedation was reversed and she was transferred to the recovery room in a stable and awake condition. Patient tolerated the entire procedure well. No complications were encountered. All instrument, sponge and lap counts were correct x 2. Specimen: none Estimated blood loss (ml): 10 Complications: none Surgical staff Operation Date: 07/04/25 15:15 Case Staff EXTENSION SERVICE SPECIALIST IN CHARGE: Rodriguez Fountain Diagnosis Discharge Diagnosis (1) Disruption of perineal obstetric wound: Status: Acute Problem List Completed Was Problem List Reviewed/Reconciled?: Yes
--- NOTE | 2025-07-04 18:42 | SUR.PHASEI ---
184 patient arrived to recovery resting comfortably in [facility], drowsy and talking with staff, on oxygen 6L via oxy mask, breathing unlabored, vital signs stable, denies pain, dressing intact to vaginal area; peripad, no bleeding noted, denies nausea, report received from Rodriguez OCAMPO and Wayne WHALEN
--- NOTE | 2025-07-04 19:26 | SUR.PHASEI ---
1923 Report given to Bonny WHALEN, patient meets discharge criteria from recovery, awake and alert, breathing unlabored, vital signs stable, denies pain, dressing intact; no bleeding noted, drinking water; denies nausea 1925 Patient transported via rney to room 352 without incident, patient awaiting in patient room, patient able to ambulate from rney to bed with stand-by assist, patient resting comfortably in bed with call light in reach when this brief writer left patients room
--- NOTE | 2025-07-04 19:43 | PC.NURSE ---
Patient arrived in Med Surg unit from OR via gurney after repair of episiotomy. Assisted patient in bed, provided safety and comfort.
[2025-07-04] MEDS: KETOROLAC INJ 30 MG/ML VIAL IVP (22:08)
[2025-07-05] VITALS: BP 129/72; PULSE 74; RESP 16; TEMP 36.2; O2SAT 98
[2025-07-05 01:58] VITALS: PULSE 56; RESP 17; RESP 95
[2025-07-05] MEDS: SODIUM CHLORIDE 0.9% 1000 ML 1,000 ML 75 ML IV (03:00)
[2025-07-05 04:00] VITALS: BP 129/74; PULSE 60; RESP 17; TEMP 36.2; O2SAT 98
[2025-07-05] MEDS: PIPER/TAZO 3.375 GM PREMIX 3.375 GM/50 ML BAG IV (05:48)
[2025-07-05] MEDS: KETOROLAC INJ 30 MG/ML VIAL IVP (06:41)
[2025-07-05 06:55] VITALS: PULSE 63; RESP 19; RESP 97
--- NOTE | 2025-07-05 07:30 | PC.NURSE ---
@[id number] Dr. Luis at bedside. Per MD discharge patient after lunch if patient pain is controlled.
--- NOTE | 2025-07-05 07:35 | ESPR_ITS ---
Documentation for date of: 07/05/25 [employer]Y [employer] SALES CONSULTANT Subjective Subjective Interval history: The patient is a 34 y/o s/p VAVD/ second degree laceration on June 29, 2025, after extensive pushing for over [address] Espinal performed her delivery. Her was complicated by diet-controlled gestational diabetes. Her care was uncomplicated with Luisa at [facility]. She presented to the ED late on 07/03/25 with severe perineal pain and was diagnosed with a perineal hematoma and a breakdown of her laceration. She is postop day #1 status post evacuation of hematoma and repair of the second- degree laceration by Dr. Lopez. This morning, she she is resting comfortably in bed. She has been up voiding. Her catheter is out. Her pain is controlled with mostly Toradol. No fevers or chills. Her labs are stable. She would like to go home today. Medical History: - Gestational diabetes, diet-controlled Surgical History: - Vacuum-assisted delivery on June 29, 2025 Obstetric History: - - Delivered via vacuum-assisted delivery on June 29, 2025 - was complicated by diet-controlled gestational diabetes - Extensive pushing for over 6 hours prior to delivery Current Medications: - Zosyn IV antibiotics every 8 hours Social History: - Has a son - Subjective: patient reports feeling better, pain is well controlled and patient is tolerating oral intake Exam Vital Signs Temp Pulse Resp BP Pulse Ox O2 Del Method O2 Flow Rate 97.1 F 63 19 129/74 98 Room Air 3 07/05/25 04:00 07/05/25 06:55 07/05/25 06:55 07/05/25 04:00 07/05/25 04:00 07/05/25 04:00 07/05/25 00:00 Narrative Exam Patient is alert and oriented x 3 no apparent distress Routine Abdominal Exam Abdominal: Present soft Routine Exam Comments: No signs of recurrent hematoma. Her perineum appears grossly normal with no swelling. She has pain at the apical portion of her repair in her perineum but no gross abnormalities. No vulvar hematoma. No foul odor. She has normal lochia. No swelling Urinary Catheter Management Cath placed during this visit: no [employer]Y PLAN SALES CONSULTANT - PN: [employer] [employer] 07/04/25 05:23 07/04/25 05:23 PARTY PLAN SALES CONSULTANT - A/P Assessment and plan (1) Disruption of perineal obstetric wound: Problem details: Patient's status post exam under anesthesia drainage of hematoma and re approximation of second-degree perineal laceration Status: Acute Assessment and plan: Patient is doing well. Discharge home. Return to clinic in 2 weeks for follow- up exam. Postoperative Procedures: Procedures Operation Date: 07/04/25 15:15 Actual Procedure Side Surgeon p Exam Under Anesthesia and Revision of Episiotomy Repair Ollie Lopez MD Postoperative day: 1 Postoperative status: doing well Postoperative plan: routine post-op care and discharge Time Spent With Patient Time: Total time spent is greater than 50% in coordination of care (as documented) at patient's floor/unit and/or counseling patient: Time with patient: less than 15 minutes
--- NOTE | 2025-07-05 07:46 | PD.GYNDS ---
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 Pelvic rest x 6 weeks. Return to clinic in 2 weeks to check sutures. (2) White classification A2 gestational diabetes mellitus (GDM): Status: Acute (3) care following vaginal delivery: Status: Acute Assessment & Plan: Patient is day #6 status post vacuum-assisted vaginal delivery with second-degree perineal laceration. Doing well discharged home pelvic rest x 6 weeks Problem List Completed Was Problem List Reviewed/Reconciled?: Yes Hospital Course Hospital Course Hospital course: The patient is a 34 y/o s/p VAVD/ second degree laceration on June 29, 2025, after extensive pushing for over [address] Espinal performed her delivery. Her was complicated by diet-controlled gestational diabetes. Her care was uncomplicated with [facility]. She presented to the ED late on 07/03/25 with severe perineal pain and was diagnosed with a perineal hematoma and a breakdown of her laceration. She is postop day #1 status post evacuation of hematoma and repair of the second-degree laceration by Dr. Lopez. This morning, she she is resting comfortably in bed. She has been up voiding. Her catheter is out. Her pain is controlled with mostly Toradol. No fevers or chills. Her labs are stable. She would like to go home today. Patient's vital signs and labs were stable. She was discharged home postoperative day #1 in stable condition. Medical History: - Gestational diabetes, diet-controlled Surgical History: - Vacuum-assisted delivery on June 29, 2025 Obstetric History: - - Delivered via vacuum-assisted delivery on June 29, 2025 - was complicated by diet-controlled gestational diabetes - Extensive pushing for over 6 hours prior to delivery Current Medications: - Zosyn IV antibiotics every 8 hours Social History: - Has a son - Status at Discharge Cognitive/behavioral status at discharge: Patient is alert and oriented x 3 in no apparent Functional status at discharge: independent ambulation Overall status at discharge: patient is progressing back to baseline Time Spent with Patient Time attestation: Total time spent providing and/or coordinating discharge services: Time spent: Less than 30 minutes Specific discharge activities: Pelvic rest x 6 weeks. Call for fevers chills heavy vaginal bleeding or foul discharge. Follow-up in 2 weeks at the clinic for a perineal check. Exam - CARD FEEDER Vital Signs Temp Pulse Resp BP Pulse Ox O2 Del Method O2 Flow Rate 97.1 F 63 19 129/74 98 Room Air 3 07/05/25 04:00 07/05/25 06:55 07/05/25 06:55 07/05/25 04:00 07/05/25 04:00 07/05/25 04:00 07/05/25 00:00 Narrative Exam Patient is alert and oriented x 3 Constitutional Constitutional: no acute distress Routine Abdominal Exam Abdominal: Present soft Routine Exam Comments: Patient's perineum shows no sign of breakdown. No abnormal discharge. No recurrent hematoma or severe perineal swelling. Routine Extremities Exam Comments: No significant edema or erythema of the lower extremities. Discharge Plan Plan Patient Disposition: HOME (Self Care) Disposition Comment: Stable Patient condition on transfer: Stable Prescriptions/Referrals Prescriptions/Med Rec: New docusate sodium [Colace] 100 mg capsule 100 mg PO QDAY 30 Days Qty: 30 0RF hydrocodone-acetaminophen 5-325 mg tablet 1 tab PO Q8H MDD 4 PRN (Reason: pain) 5 Days Qty: 12 0RF amoxicillin-pot clavulanate 875-125 mg tablet 1 tab PO BID 7 Days Qty: 14 0RF clindamycin phosphate 1 % lotion 1 applic topical BID 5 Days Qty: 60 0RF Rx Instructions: Apply to perineal wound twice a day ketorolac 10 mg tablet 10 mg PO Q6H PRN (Reason: pain) 5 Days Qty: 20 0RF lidocaine HCl 2 % jelly in applicator 1 applic topical BID PRN (Reason: pain) Qty: 125 0RF Discontinued docusate sodium 100 mg Capsule 100 mg PO BID 10 Days Qty: 20 0RF ibuprofen 800 mg tablet 800 mg PO Q8H PRN (Reason: See Comments) 10 Days Qty: 20 0RF Referrals: Geo Panchal MD [Primary Care Provider, Family Practice] Ollie Lopez MD [Physician, RESIDENTIAL PROPERTY MANAGER] Patient/Caregiver Discharge Instructions Discharge Activity: activity as tolerated Other Discharge Activity Instructions:: Pelvic rest x 6 weeks Other Discharge Diet Instructions: General diet as tolerated. Drink lots of water. Education Materials: Perineum Care After Childbirth, After Episiotomy Print Language: Ukrainian Activity Restrictions/Additional Instructions: Call for heavy vaginal bleeding fevers chills or foul discharge. Pelvic rest x 6 weeks. Follow-up in 2 weeks. Stand Alone Forms: Maryann Award Info., Patient Portal Info Letter, DC from Surgery Discharge Order Discharge Orders: Discharge (Routine); Ordered 07/05/25 Ordered By: Kavita Luis ([facility])
[2025-07-05 08:00] VITALS: BP 138/82; PULSE 59; RESP 18; TEMP 36.2; O2SAT 98
--- NOTE | 2025-07-05 10:55 | PC.NURSE ---
Patient states feels good, no pain. Patient wants to be discharged.
== END 2025-07-05 11:35 | disposition home or self-care (01) | DRG 769 ==
LOC: SERX 20:18 → SERHOLD 20:52 → S3NX 07-04 08:51 → SERHOLD 07-07 08:57
PROVIDERS: Admitting Provider Obstetrics & Gynecology; Emergency Provider Emergency Medicine; PCP Family Medicine; Visit Provider Obstetrics & Gynecology
PROC: 0KQM0ZZ Repair Perineum Muscle, Open Approach (ICD-10-PCS; principal; 2025-07-04 15:00)
DX: O90.1 Disruption of perineal obstetric wound (principal); O71.4 Obstetric high vaginal laceration alone; N89.8 Other specified noninflammatory disorders of vagina; O24.420 Gestational diabetes mellitus in childbirth, diet controlled; O9A.22 Injury, poisoning and certain other consequences of external causes complicating childbirth
CPT/HCPCS: 36415; 74177; 76856; 80053; 85025; 87040; 87081; 87086; 96365; 96366; 99285; A4217; A4649; J0360; J1100; J1885; J2405; J2543; J2704; J3010; J3490; J7030; J7050; Q9967; A9270

== ENCOUNTER 2025-07-21 10:48 | Outpatient (AMB) | payer OTHER, MEDICAID, SELFPAY ==
[2025-07-21 11:23] VITALS: BP 130/84; PULSE 85; RESP 16; TEMP 36.2; O2SAT 98; BMI 25.2
--- NOTE | 2025-07-21 11:23 | AMBOBPPN_ITS ---
Vital Signs 07/21/25 11:23 Height 1.7 m Height Method Stated Weight 73.028 kg Weight Measurement Method Standing Scale BMI 25.2 BP 130/84 Blood Pressure Source Automatic Cuff Blood Pressure Location Left Upper Arm Position Sitting Respiration 16 Pulse 85 Pulse Source Monitor Temp 97.2 F Temp Source Oral Pulse Oximetry (%) 98 Oxygen Delivery Method Room Air Allergies/Home Meds Allergies & Medications Allergies No Known Allergies Allergy (Verified 07/21/25 11:24) Medication Reconciliation docusate sodium 100 mg capsule (Colace) 100 mg PO QDAY 30 days #30 caps 07/04/25 [Rx Confirmed 07/21/25] lidocaine HCl 2 % mucosal jelly in applicator 1 applic topical BID PRN pain #125 mL 07/05/25 [Rx Confirmed 07/21/25] estradiol 0.01% (0.1 mg/gram) vaginal cream 1 g vaginal QDAY 14 days #42.5 grams 07/21/25 [Rx] Intake Visit Data Collection New Patient or Established: Established Patient (seen at [facility] within 3 years) Reason for Visit:: Perineal sutures Seen by Clinical Staff ONLY (RN/MA): No Driller'S Assistant Required: No Do You Feel Safe at Home: Yes Authorities Contacted: N/A PCP or OBGYN visit in last 3 months: Yes Date of Last PCP or OBGYN visit: 06/04/25 Hx Now: No Pain Present Currently: No Pain Scale Used: Garrido-Valero/Numerical Pain scale:: 0 Smoking Status Smoking Status: 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 Past Medical History: No Hx Neurological Disorders, No Hx Cardiac Disorders, No Hx Cancer, No Hx Blood Disorders, No Hx Anemia, No Hx Gastrointestinal Disorders, No Hx Renal Disease, No Hx Diabetes Mellitus Type 1 and No Hx Diabetes Mellitus Type 2 Questionnaires Covid-19 Vaccine Questionnaire Has patient been vacinated for Covid-19 Have you been vacinated for Covid-19: Yes Social History Living Situation History Marital Status: Lives With: Family Housing: House Tobacco History Smoking Status: 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 Second Hand Smoke Exposure: No Alcohol History Alcohol Intake: Never Domestic Abuse History Do You Feel Safe at Home: Yes EPDS - PP Depression Screening [place] Pospartum Depression Screen I have been able to laugh and see the funny side of things: (0) As much as I always could I have looked forward with enjoyment to things: (0) As much as I ever did I have blamed myself unnecessarily when things went wrong: (0) No, never I have been anxious or worried for no good reason: (0) No, not at all I have felt scared or panicky for no very good reason: (0) No, not at all Things have been getting on top of me: (0) No, I have been coping as well as ever I have been so unhappy that I have had difficulty sleeping: (0) No, not at all I have felt sad or miserable: (0) No, not at all I have been so unhappy that I have been crying: (0) No, never The thought of harming myself has occurred to me: (0) Never Total Score: EPDS Score: Referral is indicated for score of 9 or more, suicidal, or if provider believes patient is depressed regardless of score.: 0 EPDS completed yes HPI Interval History: I, Ollie Lopez, have obtained verbal consent from the patient, to be recorded during this encounter which may include, but not limited to, medical history, examination, treatment plans, and relevant health information.? Patient was informed that recording will be read and reviewed by myself before inclusion in the medical chart. 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 She underwent vaginal delivery on 07/17/2025. Then she presented back to the hospital with dehiscence of her repair which was repaired in the operating room on 07/04/2025. She reports experiencing discomfort and pain in a specific area. She has been cautious not to touch the area to avoid potential infection or stretching of the stitches. Exam Narrative Physical exam: Genitourinary: External Genitalia: Suture material noted in the perineal area. No signs of infection observed. Office Procedures [facility] LOC & Office Proc's Nursing/Assessment Patient Status: Established Patient [facility] Nursing Assessment: Medication Reconciliation, Update PMH in EMR and Vital Signs OB Clinic Coordination of Care: Education Complex Pt/Fam, Consent,records obtained, informed consent and Staff clarify orders Miscellaneous Interventions: Pelvic no cultures Established Patient Charge Established Patient Point Assignment: 75 Established Patient Point Charge: EP Level 2 (40-75) Assessment & Plan Diagnosis / Problem List (1) care following vaginal delivery: Status: Acute (2) Disruption of perineal obstetric wound: Status: Acute Plan - Reports discomfort and pain at the site of the perineal repair. - Examination reveals the presence of suture material. - Advised that some pulling and discomfort is expected during the healing process and to avoid touching the area to prevent infection and stretching of the stitches. - An estrogen cream was prescribed to promote healing, to be applied once nightly before sleep. The prescription will be sent to the pharmacy. Follow-up: A follow-up appointment is scheduled for 2 weeks from now.
== END 2025-07-21 11:36 | disposition home or self-care (01) ==
LOC: HODSOBC 10:48
PROVIDERS: Supervising Provider Obstetrics & Gynecology; Visit Provider Obstetrics & Gynecology
DX: Z39.2 Encounter for routine postpartum follow-up (principal); O90.1 Disruption of perineal obstetric wound
CPT/HCPCS: 99212; G0463

== ENCOUNTER 2025-08-03 10:34 | Outpatient (AMB) | payer OTHER, MEDICAID, SELFPAY ==
[2025-08-03 10:40] VITALS: BP 120/83; PULSE 79; RESP 17; TEMP 36.6; O2SAT 97; BMI 25.2
--- NOTE | 2025-08-03 10:40 | AMB.OBPP ---
Vital Signs 08/03/25 10:40 Height 1.7 m Height Method Stated Weight 73.142 kg Weight Measurement Method Standing Scale BMI 25.2 BP 120/83 Blood Pressure Source Automatic Cuff Blood Pressure Location Right Upper Arm Position Sitting Respiration 17 Pulse 79 Pulse Source Monitor Temp 97.8 F Temp Source Temporal Artery Scan Pulse Oximetry (%) 97 Oxygen Delivery Method Room Air Allergies/Home Meds Allergies & Medications Allergies No Known Allergies Allergy (Verified 08/03/25 10:43) Medication Reconciliation estradiol 0.01% (0.1 mg/gram) vaginal cream 1 g vaginal QDAY 14 days #42.5 grams 07/21/25 [Rx Confirmed 08/03/25] Intake Visit Data Collection New Patient or Established: Established Patient (seen at [facility] within 3 years) Reason for Visit:: Seen by Clinical Staff ONLY (RN/MA): No Assault Amphibious Vehicle Officer Required: No Do You Feel Safe at Home: Yes Authorities Contacted: N/A PCP or OBGYN visit in last 3 months: Yes Date of Last PCP or OBGYN visit: 07/21/25 Hx Now: No Are you currently on any form of Control: No Pain Present Currently: Yes Pain Scale Used: Garrido-Valero/Numerical Pain scale:: 3 Smoking Status 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 Status: 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 Past Medical History: No Hx Neurological Disorders, No Hx Cardiac Disorders, No Hx Cancer, No Hx Blood Disorders, No Hx Anemia, No Hx Gastrointestinal Disorders, No Hx Renal Disease, No Hx Diabetes Mellitus Type 1 and No Hx Diabetes Mellitus Type 2 Questionnaires Covid-19 Vaccine Questionnaire Has patient been vacinated for Covid-19 Have you been vacinated for Covid-19: Yes Social History Living Situation History Marital Status: Lives With: Family Housing: House Tobacco History Smoking Status: 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 Second Hand Smoke Exposure: No Alcohol History Alcohol Intake: Never Domestic Abuse History Do You Feel Safe at Home: Yes EPDS - PP Depression Screening [place] Pospartum Depression Screen I have been able to laugh and see the funny side of things: (0) As much as I always could I have looked forward with enjoyment to things: (3) Hardly at all I have blamed myself unnecessarily when things went wrong: (2) Yes, some of the time I have been anxious or worried for no good reason: (2) Yes, sometimes I have felt scared or panicky for no very good reason: (1) No, not much Things have been getting on top of me: (2) Yes, sometimes I haven't been coping as well as usual I have been so unhappy that I have had difficulty sleeping: (0) No, not at all I have felt sad or miserable: (2) Yes, quite often I have been so unhappy that I have been crying: (1) Only occasionally The thought of harming myself has occurred to me: (0) Never EPDS completed yes HPI Interval History: Gayathri Woodward is a 34-year-old female presenting for follow-up of perineal wound dehiscence that occurred after delivery on June 29, 2025. The patient had dehiscence of her perineal wound which was repaired on July 04, 2025, and was subsequently seen in the office on July 21, 2025, at which time the wound was intact and Premarin cream was prescribed to promote healing. The patient reports she was able to obtain the prescribed Premarin cream and feels it has helped with the healing process. She describes experiencing some dryness or discomfort on one side, specifically on the right side on the outside. She is currently and doing both and formula feeding for her baby, who is doing well. The patient has been adherent to the prescribed Premarin cream treatment regimen. She reports the sensation of dryness is localized to the right side externally and wonders if this is related to changes. She has a history of perineal wound repair on July 04, 2025 for dehiscence following delivery on June 29, 2025. The patient has been taking Premarin cream as prescribed to promote healing, which she reports helps with the healing process. She is a 34-year-old female with an obstetric history of G1 T1 L1. She delivered on June 29, 2025 with perineal wound dehiscence that required repair on July 04, 2025. The patient is currently and supplementing with formula. ROS: Genitourinary: Positive for vaginal dryness on one side. Exam Narrative Physical exam: Well-healed stitches. Area of dryness noted on the right side of the perineum, described as dry from pressure. Overall wound healing appears satisfactory. General General Appearance: alert, in no apparent distress and healthy appearing Head Head exam: atraumatic Neck Neck exam: Present normal inspection and trachea midline Chest Chest inspection: Present normal inspection and symmetric chest wall rise External exam: Present normal external exam; Absent tenderness Neuro Neurological exam: Present oriented X3 Psych Psychiatric exam: Present normal affect and normal mood Office Procedures [facility] Clinic LOC & Office Proc's Nursing/Assessment Patient Status: Established Patient [facility] Nursing Assessment: Medication Reconciliation, Update PMH in EMR and Vital Signs OB Clinic Coordination of Care: Complex Care and Chronic Disease 1-5, Education Complex Pt/Fam, Consent,records obtained, informed consent and Staff clarify orders Established Patient Charge Established Patient Point Assignment: 90 Established Patient Point Charge: EP Level 3 (80-115) Antepartum Initial or Follow-up Antepartum Follow up Visit: Yes Assessment & Plan Diagnosis / Problem List (1) Routine Follow-Up: (2) Disruption of perineal obstetric wound: Status: Acute Plan Perineal Wound Dehiscence Post-Repair: - Patient had perineal wound dehiscence following delivery on 06-29-2025, surgically repaired on 07-04-2025. - Previously seen on 07-21-2025 when wound was intact and Premarin cream was prescribed. - Current examination shows stitches have healed well with good wound integrity. - Patient reports some dryness and discomfort on right side related to normal healing process and hormonal changes associated with . Plan: - Continue current Premarin cream until finished, then discontinue. - Avoid intercourse for at least another 2 weeks. - Avoid stressing the wound area (no pulling or manipulation with fingers). - Use moisturizer such as Cetaphil or Lubriderm for dryness. - Can apply small amount of Premarin cream to dry areas for additional moisture. - No further follow-up appointments needed. Dryness: - Patient experiencing vaginal dryness, normal in period due to hormonal changes. - Further contributed to by , which she is doing in combination with other feeding methods. Plan: - Use any good moisturizer such as Cetaphil or Lubriderm. - Can use small amount of Premarin cream for additional moisture relief. (FP) Tobacco Smoking Status: 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
== END 2025-08-03 10:51 | disposition home or self-care (01) ==
LOC: HODSOBC 10:34
PROVIDERS: Supervising Provider Obstetrics & Gynecology; Visit Provider Obstetrics & Gynecology
DX: Z39.2 Encounter for routine postpartum follow-up (principal); Z39.1 Encounter for care and examination of lactating mother
CPT/HCPCS: 99213; Z1034; G0463